=== PATIENT | male | born 1965 | race Hispanic/Latino ===

== ENCOUNTER 2017-10-15 13:28 | Emergency (ER) | payer SELFPAY ==
[2017-10-15 13:43] VITALS: O2SAT 99
[2017-10-15 15:43] VITALS: BP 124/77; PULSE 68; RESP 18; TEMP 98.2
--- NOTE | 2017-10-15 17:25 | ED PDOC ---
Arrival/HPI - General Historian: Patient <Nakul Kirby - Last Filed: 10/15/17 19:01> <Michael Wang DO - Last Filed: 10/15/17 21:50> - General Chief Complaint: Abnormal Skin Integrity Time Seen by Provider: 10/15/17 13:55 - History of Present Illness Narrative History of Present Illness (Text): 10/15/17 17:22 52 year old male, presented to the Emergency department with skin irritation and erythema since sunday. Patient states on sunday the irritation started improving. He denies any pain, discharge, or trauma to the arm. Admits to limiting with abduction of the arm otherwise asymptomatic. Denies fever, chills , shortness of breath, chest pain, nausea, vomiting, or urinary symptoms. No PMD (Nakul Kirby) Past Medical History - Provider Review Nursing Documentation Reviewed: Yes - Cardiac Hx Cardiac Disorders: No - Pulmonary Hx Respiratory Disorders: No - Neurological Hx Neurological Disorder: No - HEENT Hx HEENT Disorder: No - Renal Hx Renal Disorder: No - Endocrine/Metabolic Hx Endocrine Disorders: No - Hematological/Oncological Hx Blood Disorders: No - Integumentary Hx Dermatological Disorder: No - Musculoskeletal/Rheumatological Hx Musculoskeletal Disorders: No - Gastrointestinal Hx Gastrointestinal Disorders: No - Genitourinary/Gynecological Hx Genitourinary Disorders: No - Psychiatric Hx Psychophysiologic Disorder: No Hx Substance Use: No - Anesthesia Hx Anesthesia: No <Nakul Kirby - Last Filed: 10/15/17 19:01> Family/Social History - Physician Review Nursing Documentation Reviewed: Yes Family/Social History: Unknown Family HX Smoking Status: Current Some Days Smoker Hx Alcohol Use: No Hx Substance Use: No <Nakul Kirby - Last Filed: 10/15/17 19:01> Allergies/Home Meds <Nakul Kirby - Last Filed: 10/15/17 19:01> <Mcihael Wang DO - Last Filed: 10/15/17 21:50> Allergies/Adverse Reactions: Allergies Penicillins Allergy (Verified 10/15/17 13:39) ANAPHYLAXIS Review of Systems - Physician Review All systems were reviewed & negative as marked: Yes - Review of Systems Constitutional: absent: Fevers Eyes: absent: Vision Changes ENT: absent: Hearing Changes Respiratory: absent: SOB Cardiovascular: absent: Chest Pain Gastrointestinal: absent: Abdominal Pain, Nausea, Vomiting Genitourinary Male: absent: Dysuria Musculoskeletal: absent: Arthralgias Skin: Rash. absent: Pruritis, Abscess Neurological: absent: Headache, Dizziness Endocrine: absent: Diaphoresis <Nakul Kirby - Last Filed: 10/15/17 19:01> Physical Exam Vital Signs Reviewed: Yes Temperature: Afebrile Blood Pressure: Normal Pulse: Regular Respiratory Rate: Normal Appearance: Positive for: Well-Appearing, Non-Toxic, Comfortable Pain Distress: None Mental Status: Positive for: Alert and Oriented X 3 - Systems Exam Head: Present: Atraumatic, Normocephalic Pupils: Present: PERRL Extroacular Muscles: Present: EOMI Mouth: Present: Moist Mucous Membranes Respiratory/Chest: Present: Clear to Auscultation, Good Air Exchange. No: Respiratory Distress, Accessory Muscle Use Cardiovascular: Present: Regular Rate and Rhythm, Normal S1, S2. No: Murmurs Abdomen: No: Tenderness, Distention, Peritoneal Signs Upper Extremity: Present: Normal ROM, NORMAL PULSES, Erythema, Other (Left axilla erythematous). No: Tenderness, Swelling Skin: Present: Warm, Dry, Normal Color. No: Rashes Psychiatric: Present: Alert, Oriented x 3 <Nakul Kirby - Last Filed: 10/15/17 19:01> Vital Signs Temp Pulse Resp BP Pulse Ox 10/15/17 14:10 98.2 F 68 18 124/77 99 10/15/17 13:35 98.1 F 74 16 125/86 99 Medical Decision Making <Nakul Kirby - Last Filed: 10/15/17 19:01> <Michael Wang DO - Last Filed: 10/15/17 21:50> ED Course and Treatment: 10/15/17 17:27 52M presents to the Emergency department with left axilla skin irritation and erythema since sunday. Denies fever, nausea, vomiting, shortness of breath, or any other signs of infection. 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 Patient given topical medication for the skin irritation. Patient to follow up with primary medical doctor within 3-5 days. Work note was provided. Patient verbalized understanding and agreement of treatment plan. Case discussed and reviewed with attending provider. (Nakul Kirby) Patient is a 52 year old male presenting to the Emergency room with skin irritation and erythema. Erythema, left axila erythematous, with no tenderness/ swelling as stated on physical exam. Patient Seen With Resident: In agreement with resident note. Patient was seen and evaluated with resident, came up with plan and treatment together. (Michael Wang DO) - PA / TARIFF COUNSEL / Resident Statement IRMA has reviewed & agrees with the documentation as recorded. IRMA has examined the patient and agrees with the treatment plan. <Michael Wang DO - Last Filed: 10/15/17 21:50> Disposition/Present on Arrival - Present on Arrival Any Indicators Present on Arrival: No History of DVT/PE: No History of Uncontrolled Diabetes: No Urinary Catheter: No History of Decub. Ulcer: No History Surgical Site Infection Following: None - Disposition Have Diagnosis and Disposition been Completed?: Yes Disposition Time: 17:28 Patient Plan: Discharge <Nakul Kirby - Last Filed: 10/15/17 19:01> - Disposition Disposition Time: 14:00 <Michael Wang DO - Last Filed: 10/15/17 21:50> - Disposition Diagnosis: Fungal rash of torso Disposition: HOME/ ROUTINE Condition: GOOD Discharge Instructions (ExitCare): Skin Rash (DC) Additional Instructions: YUAN ACUÑA, thank you for letting us take care of you today. Your provider was Michael Wang DO and you were treated for BUMP UNDER ARM. The emergency medical care you received today was directed at your acute symptoms. If you were prescribed any medication, please fill it and take as directed. It may take several days for your symptoms to resolve. Return to the Emergency Department if your symptoms worsen, do not improve, or if you have any other problems. Please contact your doctor or call one of the physicians/clinics you have been referred to that are listed on the Patient Visit Information form that is included in your discharge packet. Bring any paperwork you were given at discharge with you along with any medications you are taking to your follow up visit. Our treatment cannot replace ongoing medical care by a primary care provider outside of the emergency department. Thank you for allowing the [facility] team to be part of your care today. Keep area clean and dry until it is resolved. Follow up with our clinic this week for re-evaluation and further management. Prescriptions: Clotrimazole 1% Cream [Lotrimin 1%] 1 unit TP BID #1 cre Referrals: [facility] [Outside] - Follow up with primary Kim Ramirez MD [Medical Doctor] - Follow up with primary Forms: [facility] ([place]), WORK NOTE
== END 2017-10-15 14:10 | disposition home or self-care (01) ==
LOC: ED 13:28
DX: B36.9 Superficial mycosis, unspecified (principal)